=== PATIENT | male | born 1970 | race Caucasian/White ===

== ENCOUNTER 2017-02-24 12:37 | Emergency (ER) | payer BC, MEDICAID ==
[2017-02-24 13:00] VITALS: TEMP 98; O2SAT 98
--- NOTE | 2017-02-24 13:19 | C.PDOC ---
History Of Present Illness 46 y/o male PMHx HTN, CAD presents to the ED with complains of episode of visual disturbance. Pt was driving his vehicle today when he suddenly started having visual disturbances described as "flashing lights which gradually became blurred vision" followed by mild headache. Episode lasted 25 minutes which has since completely resolved. Pt denies having similar symptoms in the past. Denies numbness/weakness to extremities, slurred speech vomiting, chest pain, palpitations, SOB or any other complaints. Time Seen by Provider: 02/24/17 13:07 Chief Complaint (Nursing): Headache History Per: Patient History/Exam Limitations: no limitations Onset/Duration Of Symptoms: Mins Current Symptoms Are (Timing): Gone Severity: Moderate Preceeding Symptoms: Visual Disturbances Associated Symptoms: Blurred Vision. denies: Nausea, Vomiting, Extremity Weakness Recent travel outside of the [place]: No Past Medical History Reviewed: Historical Data, Nursing Documentation, Vital Signs Vital Signs: Last Vital Signs Temp 98 F 02/24/17 12:58 Pulse 72 02/24/17 12:58 Resp 16 02/24/17 12:58 BP 135/96 H 02/24/17 12:58 Pulse Ox 98 02/24/17 13:51 - Medical History PMH: CAD, HTN, Hypercholesterolemia - [facility] Procedures LEFT HEART CARDIAC CATH (12/13/14) LT HEART ANGIOCARDIOGRAM (12/13/14) Family History: States: Unknown Family Hx - Social History Hx Tobacco Use: Yes Hx Alcohol Use: Yes Hx Substance Use: No - Immunization History Hx Tetanus Toxoid Vaccination: No Hx Influenza Vaccination: No Hx Pneumococcal Vaccination: No Review Of Systems Except As Marked, All Systems Reviewed And Found Negative. Eyes: Positive for: Vision Change (resolved) Cardiovascular: Negative for: Chest Pain, Palpitations Respiratory: Negative for: Shortness of Breath Gastrointestinal: Negative for: Nausea, Vomiting Neurological: Positive for: Headache (resolved). Negative for: Weakness, Numbness, Change in Speech Physical Exam - Physical Exam Appears: Non-toxic, No Acute Distress Skin: Warm, Dry, No Rash Head: Atraumatic, Normacephalic Eye(s): bilateral: PERRL, EOMI Throat: Normal Neck: Normal, Normal ROM, Supple Chest: Symmetrical, No Tenderness Cardiovascular: Rhythm Regular, No Murmur Respiratory: Normal Breath Sounds, No Rales, No Rhonchi, No Wheezing Gastrointestinal/Abdominal: Normal Exam, Soft, No Tenderness Extremity: Normal ROM Extremity: Bilateral: Atraumatic Neurological/Psych: Oriented x3, Normal Speech, Normal Cognition, Normal Motor, Normal Sensation Gait: Steady ED Course And Treatment - Laboratory Results Result Diagrams: 02/24/17 13:35 02/24/17 13:35 Lab Interpretation: No Acute Changes ECG: Interpreted By Tx ECG Rhythm: Sinus Rhythm, Nonspecific Changes (T wave inversions III, AVF) ECG Interpretation: No Acute Changes O2 Sat by Pulse Oximetry: 98 (room air) Pulse Ox Interpretation: Normal - CT Scan/US CT Head Other Rad Studies (CT/US): Read By Radiologist, Radiology Report Reviewed CT/US Interpretation: Accession No. : [id number]. Patient Name / ID : JEFERSON BHANDARI / [id number]. Exam Date : 02/24/2017 13:36:55 ( Approved ). Study Comment : Sex / Age : M / 46Y. Creator : Mary Bustillo MD. Dictator : Mary Bustillo MD. Elementary Vocal Music Teacher : Steel Post Installer : Mary Bustillo MD. Approver2 : Report Date : 02/24/2017 13:47:16. My Comment : . PROCEDURE: CT HEAD WITHOUT CONTRAST. HISTORY: Headache. COMPARISON: None available. TECHNIQUE: Axial computed tomography images were obtained through the head/brain without intravenous contrast. Radiation dose: Total exam DLP = 884.93 mGy-cm. This CT exam was performed using one or more of the following dose reduction techniques: Automated exposure control, adjustment of the mA and/or kV according to patient size, and/or use of iterative reconstruction technique. FINDINGS: HEMORRHAGE: No intracranial hemorrhage. BRAIN: No mass effect or edema. No atrophy or chronic microvascular ischemic changes.Please note that MRI with diffusion imaging is more sensitive in the detection of acute ischemic event. VENTRICLES: No hydrocephalus. CALVARIUM: Unremarkable. PARANASAL SINUSES: Unremarkable as visualized. No significant inflammatory changes. MASTOID AIR CELLS: Unremarkable as visualized. No inflammatory changes. OTHER FINDINGS: None. IMPRESSION: No acute intracranial pathology identified. Progress Note: Plan; CT head, EKG, labs, IV fluids Reevaluation Time: 15:26 Reassessment Condition: Improved Disposition Counseled Patient/Family Regarding: Studies Performed, Diagnosis, Need For Followup - Disposition Referrals: Tray Bradley MD [Staff Provider] - Disposition: HOME/ ROUTINE Disposition Time: 15:27 Condition: IMPROVED Instructions: Ocular Migraine (ED) Print Language: MAORI - Clinical Impression Clinical Impression: Ocular migraine - Scribe Statement The provider has reviewed the documentation as recorded by the Lavonne Whitehead Provider Attestation: All medical record entries made by the Lavonne were at my direction and personally dictated by me. I have reviewed the chart and agree that the record accurately reflects my personal performance of the history, physical exam, medical decision making, and the department course for this patient. I have also personally directed, reviewed, and agree with the discharge instructions and disposition.
[2017-02-24 13:47] LABS: CHLORIDE 102 mmol/L (98-107); SODIUM 140 mmol/L (132-148)
[2017-02-24 13:48] LABS: POTASSIUM 4.2 mmol/L (3.6-5.2)
--- NOTE | 2017-02-24 13:48 | CT ---
PROCEDURE: CT HEAD WITHOUT CONTRAST. HISTORY: Headache COMPARISON: None available. TECHNIQUE: Axial computed tomography images were obtained through the head/brain without intravenous contrast. Radiation dose: Total exam DLP = 884.93 mGy-cm. This CT exam was performed using one or more of the following dose reduction techniques: Automated exposure control, adjustment of the mA and/or kV according to patient size, and/or use of iterative reconstruction technique. FINDINGS: HEMORRHAGE: No intracranial hemorrhage. BRAIN: No mass effect or edema. No atrophy or chronic microvascular ischemic changes.Please note that MRI with diffusion imaging is more sensitive in the detection of acute ischemic event. VENTRICLES: No hydrocephalus. CALVARIUM: Unremarkable. PARANASAL SINUSES: Unremarkable as visualized. No significant inflammatory changes. MASTOID AIR CELLS: Unremarkable as visualized. No inflammatory changes. OTHER FINDINGS: None. IMPRESSION: No acute intracranial pathology identified.
[2017-02-24 13:50] LABS: ALB/GLOB RATIO 1.3 (1.0-2.1); ALKALINE PHOSPHATASE 44 U/L (38-126); ALT/SGPT 49 U/L (21-72); AST/SGOT 53 U/L (17-59); BASO % 0.4 % (0.0-2.0); BILIRUBIN,TOTAL 1.2 mg/dL (0.2-1.3); BLOOD UREA NITROGEN 13 mg/dL (9-20); CARBON DIOXIDE 27 mmol/L (22-30); EOS # 0.3 K/uL (0.0-0.7); EOS % 3.9 % (0.0-4.0); GFR AFRICAN-AMERICAN > 60; GLUCOSE,RANDOM 97 mg/dL (75-110); HEMATOCRIT 47.1 % (35.0-51.0); LYMPH # 1.5 K/uL (1.0-4.3); LYMPH % 22.4 % (20.0-40.0); MEAN CORPUSCULAR HEMOGLOBIN 30.1 pg (27.0-31.0); MEAN CORPUSCULAR HGB CONC 34.1 g/dL (33.0-37.0); MEAN PLATELET VOLUME 9.4 fL (7.2-11.7); MONO # 0.5 K/uL (0.0-0.8); MONO % 6.8 % (0.0-10.0); NRBC % 0.1 % (0.0-2.0); RED CELL DISTRIBUTION WIDTH 12.6 % (11.5-14.5); TOTAL PROTEIN 7.5 g/dL (6.3-8.3); WHITE BLOOD COUNT 6.7 K/uL (4.8-10.8)
[2017-02-24 13:51] LABS: CALCIUM 9.4 mg/dl (8.6-10.4)
[2017-02-24 13:54] LABS: MEAN CELL VOLUME 88.3 fL (80.0-94.0)
[2017-02-24 15:48] VITALS: BP 142/85; PULSE 71; RESP 18
--- NOTE | 2017-03-01 10:16 | CARD ---
APPROVED REPORT EKG Measurement Heart [id number] <Conclusion> Normal sinus rhythm Nonspecific T wave abnormality Abnormal ECG
== END 2017-02-24 15:48 | disposition home or self-care (01) ==
LOC: C.ER 12:37
DX: G43.109 Migraine with aura, not intractable, without status migrainosus (principal)